=== PATIENT | female | born 1990 | race Caucasian/White ===

== ENCOUNTER 2016-08-29 19:32 | Emergency (ER) | payer OTHER ==
[2016-08-29 19:56] LABS: BILIRUBIN NEGATIVE (NEGATIVE); BLOOD 1+ Ery/uL (NEGATIVE); CLARITY CLOUDY (CLEAR); COLOR YELLOW (YELLOW); GLUCOSE (U) NORMAL (NORMAL); KETONE (U) NEGATIVE (NEGATIVE); LEUKOCYTES 3+ Leu/uL (NEGATIVE); NITRITE NEGATIVE (NEGATIVE); PROTEIN NEGATIVE (NEGATIVE)
[2016-08-29 20:01] LABS: BACTERIA 2+; MUCOUS MODERATE; URINARY WBC 20-50
[2016-08-29 20:24] LABS: BASOPHIL 0.3 % (0-2); EOSINOPHIL 0.4 % (0-5); HCT 36.8 % (37.0-47.0); HGB 12.6 g/dl (12.5-16.0); LYMPHOCYTE 16.5 % (15-48); MCH 25.9 pg (25.0-31.0); MCHC 34.2 g/dL (32.0-36.0); MCV 75.7 fL (78.0-100.0); MONOCYTE 5.6 % (0-12); MPV 9.4 fL (6.0-9.5); NEUTROPHIL 77.2 % (41-80); PLT 322 K/uL (150-400); RBC 4.86 M/uL (4.20-5.40); RDW 14.7 % (11.5-14.0); WBC 10.4 K/uL (4.0-10.5)
[2016-08-29 20:59] LABS: CREATININE 0.8 mg/dL (0.5-1.0); POTASSIUM 3.5 mmol/L (3.5-5.1)
== END 2016-08-29 22:09 | disposition home or self-care (01) ==
LOC: FER 19:32
PROVIDERS: Nurse Practitioner
DX: O23.11 Infections of bladder in pregnancy, first trimester (principal); N30.01 Acute cystitis with hematuria; Z90.49 Acquired absence of other specified parts of digestive tract; Z3A.01 Less than 8 weeks gestation of pregnancy
CPT/HCPCS: 36415; 76817; 80048; 81001; 84702; 85025; 87076; 87088; 87186

== ENCOUNTER 2020-08-07 10:55 | Emergency (ER) | payer OTHER ==
[~2020-08-07 10:55] MED LIST: BACLOFEN10 MG PO; BACTRIM DS TAB1 EACH PO; CLEOCIN300 MG PO; DICLOFENAC SODI75 MG PO; IBUPROFEN800 MG PO; KEFLEX500 MG PO; MOTRIN600 MG PO; NORCO 5-325 TA1 EACH PO; ONDANSETRON ODT4 MG SL; PERCOCET 5-3251 EACH PO; PREDNISONE 20MG20 MG PO; ROBAXIN500 MG PO; ROBINUL FORTE 2M2 MG PO; SPIRONOLACTONE100 MG PO; ZOFRAN4 MG PO; ZOFRAN4 MG SL
[2020-08-07 11:52] LABS: BASOPHIL 0.5 % (0-2); EOSINOPHIL 0.1 % (0-5); HCT 36.8 % (37.0-47.0); HGB 10.9 g/dl (12.5-16.0); LYMPHOCYTE 15.3 % (15-48); MCH 21.2 pg (25.0-31.0); MCHC 29.6 g/dL (32.0-36.0); MCV 71.7 fL (78.0-100.0); MONOCYTE 4.5 % (0-12); MPV 8.8 fL (6.0-9.5); NEUTROPHIL 79.2 % (41-80); NRBC 0; PLT 307 K/uL (150-400); RBC 5.13 M/uL (4.20-5.40); RDW 17.9 % (11.5-14.0); WBC 9.7 K/uL (4.0-10.5)
[2020-08-07 12:16] LABS: BUN/CREAT RATIO (CALC) 14.8 RATIO; CREATININE 0.81 mg/dL (0.51-0.95); POTASSIUM 3.7 mmol/L (3.5-5.1)
[2020-08-07 12:30] LABS: CORONAVIRUS 2019 SARS-COV-2 NEGATIVE (NEGATIVE); INFLUENZA A NAA NEGATIVE (NEGATIVE)
[2020-08-07 12:39] LABS: BILIRUBIN NEGATIVE (NEGATIVE); BLOOD 2+ Ery/uL (NEGATIVE); CLARITY CLEAR (CLEAR); COLOR YELLOW (YELLOW); GLUCOSE (U) NORMAL (NORMAL); LEUKOCYTES NEGATIVE Leu/uL (NEGATIVE); NITRITE NEGATIVE (NEGATIVE); PROTEIN NEGATIVE (NEGATIVE); SPECIFIC GRAVITY >=1.030 (1.001-1.030); UROBILINOGEN 0.2 mg/dL (0.2-1.0); pH 5.5 (5.0-9.0)
[2020-08-07 12:47] LABS: AMORPHOUS URATES CRYSTALS MODERATE; BACTERIA TRACE; SQUAMOUS EPITHELIAL CELLS 20-50; URINARY RBC RARE; URINARY WBC RARE
[2020-08-07] MEDS ORDERED: MEDROL 4MG DOSEP4 MG PO (12:53)
== END 2020-08-07 13:10 | disposition home or self-care (01) ==
LOC: FER 10:55
PROVIDERS: Emergency Medicine
DX: J06.9 Acute upper respiratory infection, unspecified (principal); R63.0 Anorexia; F17.210 Nicotine dependence, cigarettes, uncomplicated; Z20.822 Contact with and (suspected) exposure to COVID-19
CPT/HCPCS: 36415; 71045; 80048; 81001; 85025; J7030; U0002